=== PATIENT | male | born 1980 | race Caucasian/White ===

== ENCOUNTER 2019-07-01 20:54 | Emergency (ER) | payer SELFPAY ==
[~2019-07-01] VITALS: Ht 160 cm; Wt 82.6 kg
[2019-07-01 20:59] VITALS: BP 144/91
--- NOTE | 2019-07-01 21:08 | NUR ---
PT AMBULATED TO LOBBY
--- NOTE | 2019-07-01 22:30 | NUR ---
PT TO BED #3
--- NOTE | 2019-07-01 22:45 | NUR ---
39 Y/O MALE C/O CHEMICAL BURN TO FACE X 1800 TODAY. 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 NO EYE TRUAMA OR INJURY. NO BLURRY VISION. VSS. AIRWAY IS PATENT AND CLEAR. NO RESP DISTRESS NOTED. SKIN SHOWS BURN [place] ON THE MID TO RT SIDE OF FACE AND REDNESS PATCHES. PT STATES AFTER HE GOT THE CHEMICAL ON HIS FACE HE RINSES IT WITH WATER FOR 30MINS. NKA. NO PMH.
[2019-07-02] MEDS ORDERED: NEOMYCIN/POLYMYXIN/BACITRACIN 0.9 GM/1 PKT TP ONE (00:10)
[2019-07-02 00:25] VITALS: BP 144/91
--- NOTE | 2019-07-02 00:25 | NUR ---
Patient discharged with v/s stable. Written and verbal after care instructions given and explained. Patient alert, oriented and verbalized understanding of instructions. Ambulatory with steady gait. All questions addressed prior to discharge. ID band removed. Patient advised to follow up with PMD. Rx of KEFLEX, AND NEOSPORIN given. Patient educated on indication of medication including possible reaction and side effects. Opportunity to ask questions provided and answered.
== END 2019-07-02 00:25 | disposition home or self-care (01) ==
LOC: MED 20:54
DX: T20.10XA Burn of first degree of head, face, and neck, unspecified site, initial encounter (principal); T79.9XXA Unspecified early complication of trauma, initial encounter; Y93.89 Activity, other specified; Y92.89 Other specified places as the place of occurrence of the external cause; Y99.8 Other external cause status
CPT/HCPCS: 16000; 99284

== ENCOUNTER 2023-04-03 03:10 | Emergency (ER) | payer BC ==
[~2023-04-03] VITALS: Ht 162.6 cm; Wt 79.8 kg
[2023-04-03 03:20] VITALS: BP 134/71; PULSE 71; RESP 18; O2SAT 99
[2023-04-03 05:26] LABS: FLU A ANTIGEN negative (NEGATIVE); FLU B ANTIGEN NEGATIVE (NEGATIVE)
[2023-04-03] MEDS ORDERED: DEXAMETHASONE 10 MG/ML VIAL IM ONE (06:10)
[2023-04-03 06:30] VITALS: BP 134/71; PULSE 71; RESP 18; O2SAT 99
== END 2023-04-03 06:30 | disposition home or self-care (01) ==
LOC: MED 03:10
DX: J02.9 Acute pharyngitis, unspecified (principal); Z20.822 Contact with and (suspected) exposure to COVID-19; R51.9 Headache, unspecified
CPT/HCPCS: 87081; 87426; 87804; 96372; 99283; J1100